=== PATIENT | male | born 1990 | race Two or more races ===

== ENCOUNTER 2017-04-24 09:21 | Emergency (ER) | payer OTHER ==
[~2017-04-24] VITALS: Ht 177.8 cm; Wt 85.1 kg
[2017-04-24] MEDS ORDERED: ONDANSETRON 2MG/ML, 2ML ONE (09:57)
[2017-04-24] MEDS ORDERED: FAMOTIDINE 20 MG/2 ML ONE (09:58)
[2017-04-24] MEDS ORDERED: SODIUM CHLORIDE FLUSH 10ML SYR IVF ONE (10:00)
[2017-04-24] MEDS ORDERED: SODIUM CHLORIDE 0.9% 1,000ML IVBOLUS ONE (10:00)
[2017-04-24] MEDS ORDERED: FAMOTIDINE 20 MG/2 ML IVP ONE (10:00)
[2017-04-24] MEDS ORDERED: ONDANSETRON 2MG/ML, 2ML IVPush ONE (10:00)
[2017-04-24 10:23] LABS: HEMATOCRIT 48.9 % (39.2-51.8); HEMOGLOBIN 16.9 g/dL (13.7-18.0); WHITE BLOOD COUNT 7.5 x10^3/uL (3.4-10)
[2017-04-24 10:32] LABS: BLOOD UREA NITROGEN 15 mg/dL (7-18)
[2017-04-24 10:58] VITALS: BP 136/72
== END 2017-04-24 11:46 | disposition home or self-care (01) ==
LOC: ED 11:45
DX: K52.9 Noninfective gastroenteritis and colitis, unspecified (principal)
CPT/HCPCS: 36415; 80048; 81003; 82040; 85025; 96361; 96374; 96375; 99284; J2405; J7030; S0028